=== PATIENT | female | born 1990 | race Caucasian/White ===

== ENCOUNTER 2020-07-06 05:11 | Emergency (ER) | payer SELFPAY ==
[2020-07-06] MEDS ORDERED: THIAMINE 200 MG/2 ML INJ ONE (06:32)
[2020-07-06] MEDS ORDERED: MULTIVITAMINS 10 ML VIAL (INJ) IV ONE (06:32)
[2020-07-06] MEDS ORDERED: FOLIC ACID 5 MG/ML VIAL ONE (06:33)
[2020-07-06] MEDS ORDERED: NA CHLORIDE 0.9% 1,000 ML ONE (06:34)
[2020-07-06 07:09] LABS: Absolute Lymphocytes (CBC) 1.9 K/uL (0.7-4.9); Basophils % 0.3 % (0-1.3); Hematocrit 39.7 % (36.0-45.0); MPV 7.8 fL (7.6-11.3); RBC Red Blood Cell Count 4.35 M/uL (3.86-4.86)
[2020-07-06 07:26] LABS: Protime INR 0.99
[2020-07-06 07:40] LABS: ALT/SGPT 36 U/L (12-78); AST/SGOT 23 U/L (15-37); Albumin 3.8 g/dL (3.4-5.0); Alkaline Phosphatase 81 U/L (45-117); BUN Blood Urea Nitrogen 13 mg/dL (7-18); Bicarbonate 25 mmol/L (21-32); Bilirubin Direct < 0.1 mg/dL (0-0.2); Bilirubin Total 0.3 mg/dL (0.2-1.0); Glucose Level 92 mg/dL (74-106); Potassium 4.1 mmol/L (3.5-5.1); Protein, Total 8.2 g/dL (6.4-8.2); Sodium Level 144 mmol/L (136-145)
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
[2020-07-06] MEDS ORDERED: ACETAMINOPHEN 325 MG TABLET ONE (17:00)
[2020-07-11 04:29] VITALS: TEMP 97.4
[2020-07-11 04:34] VITALS: O2SAT 99
[2020-07-11 04:36] VITALS: BP 96/56
== END 2020-07-06 19:16 | disposition home or self-care (01) ==
LOC: ER 05:11
DX: F10.929 Alcohol use, unspecified with intoxication, unspecified (principal)
CPT/HCPCS: 36415; 80048; 80076; 80320; 80329; 85025; 85610; 85730; 93005; 96365; 96366; 99284; J3411; J7030

== ENCOUNTER 2022-09-26 01:10 | Emergency (ER) | payer SELFPAY ==
--- OUTSIDE RECORDS SUMMARY | 2022-09-26 01:13 | XMS REPORT | Continuity of Care Document ---
:1990 Author Organization [facility] t Address [address] [place] [address] Care Team Providers Name Role Phone Pcp, Patient Does Not Have A Primary Care Physician +[id number] ADALGISA DICKINSON Attending Clinician Unavailable Adalgisa Dickinson DO Attending Clinician KRISTIN THOMSON Attending Clinician Unavailable Kristin Snowden Attending Clinician KRISTIN THOMSON Admitting Clinician Unavailable Problems Condition Condition Condition Status Onset Resolution Last Treating Co mments Source Name Details Category Date Date Treatment Clinician Date No known No known Disease Unive rs active active ity of problems problems [facility] Allergies, Adverse Reactions, Alerts Allergy Allergy Status Severity Reaction(s) Onset Inactive Treating Comm ents Source Name Type Date Date Clinician NO KNOWN Drug Active Univers ALLERGIE Class ity of S [facility] Social History Social Habit Start Date Stop Date Quantity Comments Source Exposure to 2022-05-22 2022-06-01 Not sure [facility] SARS-CoV-2 (event) 00:00:00 11:06:00 Medica l Branch Sex Assigned At [birth year] [facility] 00:00:00 00:00:00 Medical Branch Smoking Status Start Date Stop Date Source Tobacco smoking consumption [facility] Medical unknown Branch Medications Ordered Filled Start Stop Current Ordering Indication Dosage Frequency Signature Comments Components Source Medication Medication Date Date Medication? Clinician (SIG) Name Name amoxicillin 2021-08- No [id number] 875mg Take 1 Univers 875 mg 0-31 11-08 tablet by ity of tablet 00:00: 05:59 mouth in [place] 00 :00 the Medical morning Branch and 1 tablet in the evening. Do all this for 7 days. cephALEXin 2021- No [id number] 500mg Take 1 Univers (KEFLEX) 02-07 [id number] capsule by it y of 500 mg 00:00: 04:59 mouth 4 [place] capsule 00 :00 (four) Medical times Branch daily for 7 days. Immunizations Ordered Filled Immunization Date Status Comments [facility] Immunization Name Name Td 2022-02-07 Completed [facility] of 00:00:00 [facility] Branch Td 2022-02-07 Completed [facility] 00:00:00 [facility] Vital Signs Vital Name Observation Time Observation Value Comments Source Systolic blood 2022-06-01 16:07:00 153 mm[Hg] [facility] Diastolic blood 2022-06-01 16:07:00 99 mm[Hg] [facility] Heart rate 2022-06-01 16:07:00 100 /min [facility] Body temperature 2022-06-01 16:07:00 37.17 Cassie [facility] Respiratory rate 2022-06-01 16:07:00 20 /min [facility] Body height 2022-06-01 16:07:00 160 cm [facility] Body weight 2022-06-01 16:07:00 77.111 kg [facility] BMI 2022-06-01 16:07:00 30.11 kg/m2 [facility] Oxygen saturation in 2022-06-01 16:07:00 99 /min [facility] Arterial blood by [facility] Pulse oximetry Branch Systolic blood 2022-02-07 13:11:00 142 mm[Hg] [facility] Diastolic blood 2022-02-07 13:11:00 105 mm[Hg] [facility] Heart rate 2022-02-07 13:11:00 88 /min [facility] Body temperature 2022-02-07 13:11:00 36.89 Cassie [facility] Res[facility] rate 2022-02-07 13:11:00 16 /min [facility] Body height 2022-02-07 13:11:00 160 cm [facility] Body weight 2022-02-07 13:11:00 81.647 kg [facility] BMI 2022-02-07 13:11:00 31.89 kg/m2 [facility] Oxygen saturation in 2022-02-07 13:11:00 97 /min University Arterial blood by [facility] Pulse oximetry Branch Procedures Procedure Date / Time Performed Performing Clinician Sour e CONSENT/REFUSAL FOR 2022-06-01 16:03:10 Doctor Unassigned, No Un [facility] DIAGNOSIS AND Name [facility] TREATMENT XR FOOT <3 VW RIGHT 2022-02-07 13:47:00 Kristin Thomson [facility] NOTICE OF PRIVACY 2022-02-07 12:53:26 Doctor Unassigned, No [facility] PRACTICES Name [facility] Encounters Start End Encounter Admission Attending Care Care Encounter Source Date/Time Date/Time Type Type Clinicians Facility Department ID 2022-06-01 2022-06-01 Emergency [facility] [id number] Univers 11:09:00 11:39:00 ADALGISA murphy [facility] 2022-06-01 2022-06-01 [facility] [id number] Univers 11:09:00 11:39:00 Adalgisa DEE [id number] ity [facility] [id number] [facility] [id number] [place] [id number] Branch 2022-02-07 2022-02-07 Emergency X [facility] ERT [id number] Univers 08:14:00 10:26:00 KRISTIN murphy [facility] 2022-02-07 2022-02-07 [facility] [id number] Univers 08:14:00 10:26:00 Kristin DEE [id number] i ty of [facility] [id number] [facility] [id number] [place] [id number] Branch Results This patient has no known results.
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
[2022-09-26 01:56] VITALS: BP 126/81; TEMP 98.6; O2SAT 98
== END 2022-09-26 01:50 | disposition home or self-care (01) ==
LOC: ER 01:10
DX: Z04.71 Encounter for examination and observation following alleged adult physical abuse (principal); S01.81XA Laceration without foreign body of other part of head, initial encounter
CPT/HCPCS: 99283

== ENCOUNTER 2022-09-26 12:37 | Emergency (ER) | payer SELFPAY ==
--- OUTSIDE RECORDS SUMMARY | 2022-09-26 12:45 | XMS REPORT | Continuity of Care Document ---
:1990 Author Organization [facility] t Address [address] [place] [address] Care Team Providers Name Role Phone Pcp, [...] rs active active ity of problems problems [facility] Allergies, Adverse Reactions, Alerts Allergy Allergy Status Severity Reaction(s) Onset Inactive Treating Comm ents Source Name Type Date Date Clinician NO KNOWN Drug Active Univers ALLERGIE Class ity of S [facility] Social History Social Habit Start Date Stop Date Quantity Comments Source Exposure to 2022-05-22 2022-06-01 Not sure [facility] SARS-CoV-2 (event) 00:00:00 11:06:00 Medica l Branch Sex Assigned At [birth year] [facility] [place] [facility] Medical Branch Smoking Status Start Date Stop Date Source Tobacco smoking consumption [facility] Medications Ordered Filled Start Stop Current Ordering Indication Dosage Frequency Signature Comments Components Source Medication Medication Date Date Medication? Clinician (SIG) Name Name amoxicillin 2021-08- No [id number] 875mg Take 1 Univers 875 mg 06-09 tablet by ity of tablet 00:00: 05:59 mouth in [place] 00 :00 the Medical morning Branch and 1 tablet in the evening. Do all this for 7 days. cephALEXin 2021- No [id number] 500mg Take 1 Univers (KEFLEX) 02-07 [id number] capsule by it y of 500 mg 00:00: 04:59 mouth 4 [place] capsule 00 :00 (four) Medical times Branch daily for 7 days. Immunizations Ordered Filled Immunization Date Status Comments [facility] e Immunization Name Name Td 2022-02-07 Completed University 00:00:00 [facility] Branch Td 2022-02-07 Completed [facility] 00:00:00 [facility] Vital Signs Vital Name Observation Time Observation Value Comments Source Systolic blood 2022-06-01 16:07:00 153 mm[Hg] Univer sity of [facility] Diastolic blood 2022-06-01 16:07:00 99 mm[Hg] Unive rsity of [facility] Heart rate 2022-06-01 16:07:00 100 /min [facility] Body temperature 2022-06-01 16:07:00 37.17 Cassie [facility] Respiratory rate 2022-06-01 16:07:00 20 /min [facility] Body height 2022-06-01 16:07:00 160 cm [facility] Body weight 2022-06-01 16:07:00 77.111 kg [facility] BMI 2022-06-01 16:07:00 30.11 kg/m2 [facility] Oxygen saturation in 2022-06-01 16:07:00 99 /min [facility] Arterial blood by [facility] Pulse oximetry Branch Systolic blood 2022-02-07 13:11:00 142 mm[Hg] Univer sity of pressure [facility] Diastolic blood 2022-02-07 13:11:00 105 mm[Hg] Unive rsity of [facility] Heart rate 2022-02-07 13:11:00 88 /min [facility] Body temperature 2022-02-07 13:11:[address] [facility] Respiratory rate 2022-02-07 13:11:00 16 /min [facility] Body height 2022-02-07 13:11:00 160 cm Universi ty [facility] Body weight 2022-02-07 13:11:00 81.647 kg Universi ty [facility] BMI 2022-02-07 13:11:00 31.89 kg/m2 [facility] Oxygen saturation in 2022-02-07 13:11:00 97 /min University of Arterial blood by [facility] Pulse oximetry Branch Procedures Procedure Date / Time Performed Performing Clinician Sour e CONSENT/REFUSAL FOR 2022-06-01 16:03:10 [facility] TREATMENT XR FOOT <3 VW RIGHT 2022-02-07 13:47:00 [facility] 2022-02-07 12:53:26 Doctor Unassigned, No [facility]ACTICES Name [facility] Encounters Start End Encounter Admission Attending Care Care Encounter Source Date/Time Date/Time Type Type Clinicians Facility Department ID 2022-06-01 2022-06-[address] [facility] ERT [id number] Univers 11:09:00 11:39:00 ADALGISA murphy [facility] 2022-06-01 2022-06-[address] [facility] [id number] Univers 11:09:00 11:39:00 Adalgisa DEE [id number] ity [facility] [id number] [facility] [id number] [place] [id number] Branch 2022-02-07 2022-02-07 Emergency X ALIX NVGÉNESIS ERT [id number] Univers 08:14:00 10:26:00 KRISTIN murphy [facility] 2022-02-07 2022-02-[address] [facility] [id number] Univers 08:14:00 10:26:00 Kristin DEE [id number] i ty [facility] [id number] [facility] [id number] [place] [id number] Branch Results This patient has no known results.
[2022-09-26] MEDS ORDERED: TDAP (DIPHTH,PERTUSS(ACELL),TET VAC) 0.5 ML VIAL IMVAC ONE (13:56)
--- NOTE | 2022-09-26 13:56 | RAD REPORT ---
EXAM DESCRIPTION: RAD - Hand Right 3 View - 09/26/2022 1:30 pm CLINICAL HISTORY: Pain COMPARISON: Hand Left 3 View dated 01/27/2016 FINDINGS/IMPRESSION: Deformity at the fifth distal metacarpal likely a remote healed fifth metacarpa l fracture. Soft tissue swelling is present. Possible acute nondisplaced mid diaphyseal fracture.
--- NOTE | 2022-09-26 14:13 | ER ---
Nurse's Notes [facility] Name: Eunice Gage Age: 32 yrs Sex: Female : 1990 Arrival Date: 09/26/2022 Time: 12:38 Bed 19 Private MD: Diagnosis: Nondisplaced fracture of shaft of fifth metacarpal bone, right hand;Facial Laceration/ Laceration without foreign body of cheek and temporomandibular area Presentation: 09/26 13:01 Chief complaint: Right hand pain and swelling since last night, cause unknown, pt hb stated "I don't want to talk about it." Laceration noted to right side of face, bleeding controlled. Coronavirus screen: At this time, the client does not indicate any symptoms associated with coronavirus-19. Ebola Screen: No symptoms or risks identified at this time. Initial Sepsis Screen: Does the patient meet any 2 criteria? No. Patient's initial sepsis screen is negative. Does the patient have a suspected source of infection? No. Patient's initial sepsis screen is negative. Risk Assessment: Do you want to hurt yourself or someone else? Patient reports no desire to harm self or others. Onset of symptoms was September 25, 2022. 13:01 Method Of Arrival: Ambulatory hb 13:01 Acuity: CALLY 4 hb Triage Assessment: 13:45 General: Appears in no apparent distress. uncomfortable. Injury Description: Laceration eh3 was sustained 12-24 hours ago. no active bleeding noted at this time. 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 - Social history:: Smoking status: unknown. Screenin:45 [facility] ED Fall Risk Assessment (Adult) History of falling in the last 3 months, eh3 including since admission No falls in past 3 months (0 pts) Confusion or Disorientation No (0 pts) Intoxicated or Sedated No (0 pts) Impaired Gait No (0 pts) Mobility Assist Device Used No (0 pt) Altered Elimination No (0 pt) Score/Fall Risk Level 0 - 2 = Low Risk. Abuse screen: Denies threats or abuse. Denies injuries from another. Nutritional screening: No deficits noted. Tuberculosis screening: No symptoms or risk factors identified. Assessment: 13:45 General: Appears in no apparent distress. uncomfortable, Behavior is calm, cooperative, eh3 appropriate for age. Pain: Complains of pain in right hand Pain does not radiate. Neuro: Level of Consciousness is awake, alert, obeys commands, Oriented to person, place, time, situation. Cardiovascular: Capillary refill < 3 seconds Patient's skin is warm and dry. Respiratory: Airway is patent Respiratory effort is even, unlabored, Respiratory pattern is regular, symmetrical. GI: No signs and/or symptoms were reported involving the gastrointestinal system. Abdomen is round non-distended. : No signs and/or symptoms were reported regarding the genitourinary system. EENT: No signs and/or symptoms were reported regarding the EENT system. Derm: Skin is pink, warm \\T\\ dry. Wound noted right cheek Wound is 3cm laceration, no bleeding noted. Musculoskeletal: Circulation, motion, and sensation intact. Range of motion: intact in all extremities, Swelling present in dorsal aspect of proximal phalanx of right little finger and dorsum of right hand. 14:45 Reassessment: Patient appears in no apparent distress at this time. Patient and/or eh3 family updated on plan of care and expected duration. Pain level reassessed. Patient is alert, oriented x 3, equal unlabored respirations, skin warm/dry/pink. Vital Signs: 13:01 BP 136 / 88; Pulse 99; Resp 16; Temp 98.5; Pulse Ox 100% on R/A; Weight 90.72 kg; hb Height 5 ft. 3 in. (160.02 cm); Pain 9/10; 13:45 BP 144 / 82; Pulse 90; Resp 16; Pulse Ox 100% on R/A; eh3 14:45 BP 147 / 67; Pulse 102; Resp 18; Pulse Ox 100% on R/A; eh3 13:01 Body Mass Index 35.43 (90.72 kg, 160.02 cm) hb ED Course: 12:38 Patient arrived in ED. rg4 12:49 Shilpa Hilario FNP-C is [facility]. kb 12:49 Johnny Aguiar MD is Attending Physician. kb 13:03 Triage completed. hb 13:04 Arm band placed on. hb 13:34 Hand Right 3 View XRAY In Process Unspecified. EDMS 13:45 Patient has correct armband on for positive identification. Bed in low position. Call eh3 light in reach. Side rails up X2. Pulse ox on. NIBP on. Door closed. Noise minimized. Lights dimmed. Warm blanket given. 13:49 Rosamaria Ceja, RN is Primary Nurse. eh3 14:15 Wound care: to laceration located on right cheek was irrigated with normal saline, eh3 dressed with Neosporin, band aid, Patient tolerated well. 14:25 No provider procedures requiring assistance completed. Patient did not have IV access eh3 during this emergency room visit. 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 Exp: eh3 02/13/2023. Lot #: [id number]. } Route: IM; Site: right deltoid; 14:55 Follow up: Response: (VIS) Vaccine information sheet provided today. Questions and/or eh3 concerns addressed. VIS edition date: Mar 07, 2021.; No adverse reaction Medication: 13:58 Vaccine Information Statement (VIS) provided today. Questions and/or concerns eh3 addressed. VIS edition date: March 07, 2021. Outcome: 14:13 Discharge ordered by . kb 14:57 Discharged to home ambulatory. eh3 14:57 Condition: stable 14:57 Discharge instructions given to patient, Instructed on discharge instructions, follow up and referral plans. Demonstrated understanding of instructions, follow-up care. 14:57 Patient left the ED. eh3 Signatures: Dispatcher [employer] EDUT Shilpa Hilario, MANAGER OF HOSPITAL-C MANAGER OF HOSPITAL-CkCheyanne Woodruff RN RN hb Garcia, Rubi rg4 Rosamaria Ceja, VALERIY RN eh3 Corrections: (The following items were deleted from the chart) 14:04 14:03 Vaccine Information Statement (VIS) provided today. Questions and/or concerns eh3 addressed. VIS edition date: March 07, 2021 eh3 14:56 14:15 Wound care: to laceration located on right cheek was irrigated with normal eh3 saline, dressed with Neosporin, band aid, eh3
--- NOTE | 2022-09-26 14:13 | EDPHYS ---
Physician Documentation [facility] Name: Eunice Gage Age: 32 yrs Sex: Female : 1990 Arrival Date: 09/26/2022 Time: 12:38 Bed 19 Private MD: ED Physician Johnny Aguiar HPI: 09/26 15:06 This 32 yrs old Female presents to ER via Ambulatory with complaints of Hand Injury. kb 15:06 The patient or guardian reports injury, pain, swelling. The complaints affect the kb dorsum of right hand. Context: The problem was sustained at home, resulted from an unknown cause. Onset: The symptoms/episode began/occurred last night. Modifying factors: The symptoms are alleviated by nothing, the symptoms are aggravated by movement. Associated signs and symptoms: The patient has no apparent associated signs or symptoms. Severity of symptoms: At their worst the symptoms were moderate, in the emergency department the symptoms are unchanged. The patient has not experienced similar symptoms in the past. The patient has not recently seen a physician. 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 - Social history:: Smoking status: unknown. ROS: 14:59 Constitutional: Negative for fever, chills, and weight loss. kb 14:59 MS/extremity: Positive for pain, swelling, tenderness, of the dorsum of right hand. 14:59 Skin: Positive for laceration(s), of the right cheek. 14:59 All other systems are negative. Exam: 14:59 Constitutional: This is a well developed, well nourished patient who is awake, alert, kb and in no acute distress. Head/Face: Normocephalic, atraumatic. ENT: Moist Mucous membranes Cardiovascular: Regular rate and rhythm with a normal S1 and S2. No gallops, murmurs, or rubs. No pulse deficits. Respiratory: Respirations even and unlabored. No increased work of breathing. Talking in full sentences Abdomen/GI: Soft, non-tender. No distention Neuro: Awake and alert, GCS 15, oriented to person, place, time, and situation. Moves all extremities. Normal gait. Psych: Awake, alert, with orientation to person, place and time. Behavior, mood, and affect are within normal limits. 14:59 Musculoskeletal/extremity: Extremities: grossly normal except: noted in the dorsal aspect of proximal phalanx of right little finger: 14:59 Skin: injury, laceration(s), the wound is approximately 3 cm(s), of the dorsum of right hand, that can be described as clean, no foreign body, linear, without bleeding. Vital Signs: 13:01 BP 136 / 88; Pulse 99; Resp 16; Temp 98.5; Pulse Ox 100% on R/A; Weight 90.72 kg; hb Height 5 ft. 3 in. (160.02 cm); Pain 9/10; 13:45 BP 144 / 82; Pulse 90; Resp 16; Pulse Ox 100% on R/A; eh3 14:45 BP 147 / 67; Pulse 102; Resp 18; Pulse Ox 100% on R/A; eh3 13:01 Body Mass Index 35.43 (90.72 kg, 160.02 cm) hb MDM: 12:49 Patient medically screened. kb 14:47 Differential diagnosis: dislocation, closed fracture, contusion. Data reviewed: vital kb signs, nurses notes. Independent interpretation of the following test(s) in the Emergency Department X-Ray: My interpretation is x-ray of hand read by me reveals nondisplaced fracture of fifth metacarpal.. Counseling: I had a detailed discussion with the patient and/or guardian regarding: the historical points, exam findings, and any diagnostic results supporting the discharge/admit diagnosis, radiology results, the need for outpatient follow up, a orthopedic surgeon, to return to the emergency department if symptoms worsen or persist or if there are any questions or concerns that arise at home. ED course: Patient is a 32-year-old female who presents for right hand pain and swelling as well as laceration to right cheek. States her cheek was cut by glass last night and she is not positive what happened to her hand. On exam patient has swelling to dorsum of right hand, full range of motion. 3 cm laceration that is well approximated noted to right cheek. X-ray reveals nondisplaced fracture of fifth metacarpal as well as old fracture. Patient educated on these findings and splint applied. Patient educated to follow-up with Ortho verbal understanding received.. . 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 Exp: eh3 02/13/2023. Lot #: [id number]. } Route: IM; Site: right deltoid; 14:55 Follow up: Response: (VIS) Vaccine information sheet provided today. Questions and/or 3 concerns addressed. VIS edition date: Mar 07, 2021.; No adverse reaction Disposition Summary: 09/26/22 14:13 Discharge Ordered Location: Home kb Condition: Stable kb Diagnosis - Nondisplaced fracture of shaft of fifth metacarpal bone, right hand kb - Facial Laceration/ Laceration without foreign body of cheek and temporomandibular kb area Followup: kb - With: Emergency Department - When: As needed - Reason: Worsening of condition Followup: kb - With: Private Physician - When: 2 - 3 days - Reason: Recheck today's complaints, Continuance of care, Re-evaluation by your physician Discharge Instructions: - Discharge Summary Sheet kb - Metacarpal Fracture, Olev-ed-[id number] kb - Facial Laceration, Fczi-fk-Hcso kb Forms: - Medication Reconciliation Form kb - Thank You Letter kb - Antibiotic Education kb - Prescription Opioid Use kb - Work release form eb Signatures: Dispatcher [employer] EDShilpa New, ALIYA-Lupillo PISANO-Cheyanne Barroso RN RN Rosamaria Ceja RN RN eh3 Corrections: (The following items were deleted from the chart) 15:07 14:59 Skin: injury, laceration(s), the wound is approximately 3 cm(s), of the right kb cheek, that can be described as clean, no foreign body, linear, without bleeding, kb
[2022-09-26 15:30] VITALS: TEMP 98.5; O2SAT 100
[2022-09-26 15:46] VITALS: BP 147/67
== END 2022-09-26 14:57 | disposition home or self-care (01) ==
LOC: ER 12:37
PROC: 2W3EX1Z Immobilization of Right Hand using Splint (ICD-10-PCS; principal; 2022-09-26)
DX: S62.356A Nondisplaced fracture of shaft of fifth metacarpal bone, right hand, initial encounter for closed fracture (principal); S01.411A Laceration without foreign body of right cheek and temporomandibular area, initial encounter; Z23 Encounter for immunization
CPT/HCPCS: 90471; 99284

== ENCOUNTER 2023-05-24 16:40 | Emergency (ER) | payer SELFPAY ==
[2012-04-01 19:11] VITALS: BP 140/68
--- OUTSIDE RECORDS SUMMARY | 2023-05-24 16:43 | XMS REPORT | Continuity of Care Document ---
:1990 Author Organization [facility] t Address [address] [place] [address] Care Team Providers Name Role Phone Pcp, Patient Does Not Have A Primary Care Physician [id number] ARLINE LOCKWOOD Attending Clinician Unavailable Arline Gómez Attending Clinician JAYLIN THOMSON Attending Clinician Unavailable Jaylin Snowden Attending Clinician ROSEY MELGAR Attending Clinician Unavailable Janneth Ortiz Attending Clinician JANNETH CUNNINGHAM Attending Clinician Unavailable Doctor Unassigned, [place] Attending Clinician Unavailable ALEN ROBERT Attending Clinician Unavailable Alen Robert MD Attending Clinician AVERY ABURTO Attending Clinician Unavailable ADALGISA DICKINSON Attending Clinician Unavailable Adalgisa Dickinson DO Attending Clinician JAYLIN THOMSON Admitting Clinician Unavailable Payers Payer Name Policy Type Policy Number Effective Date Expiration Date [facility] [id number] [id number] CARE HOME 00:00:00 Problems Condition Condition Condition Status Onset Resolution Last Treating Co mments Source Name Details Category Date Date Treatment Clinician Date No known No known Disease Unive rs active active ity of problems problems [facility] Allergies, Adverse Reactions, Alerts Allergy Allergy Status Severity Reaction(s) Onset Inactive Treating Comm ents Source Name Type Date Date Clinician NO KNOWN Drug Active Univers ALLERGIE Class ity of S [facility] Social History Social Habit Start Date Stop Date Quantity Comments Source Gender identity [facility] [place] [facility] [place] Sexual orientation Univer sity of [facility] Alcohol intake 2023-03-30 2023-03-30 Lifetime University of 00:00:00 00:00:00 non-drinker [facility] (finding) Branch Exposure to 2022-10-19 2022-10-29 Not sure [facility]-CoV-2 (event) 00:00:00 10:11:00 [facility] History of Social 2022-10-02 2022-10-02 Univers ity of function 00:00:00 00:00:00 [facility] Tobacco use and 2022-10-02 2022-10-02 Smokeless Universit y of exposure 00:00:00 00:00:00 tobacco non-user [facility] dical [place] Sex Assigned [birth year] Universit y of 00:00:00 00:00:00 [facility] Smoking Status Start Date Stop Date Source Tobacco smoking consumption [facility] [place] Never smoked tobacco [facility] Medications Ordered Filled Start Stop Current Ordering Indication Dosage Frequency Signature Comments Components Source Medication Medication Date Date Medication? Clinician (SIG) Name Name rabies 2022- No 20U/kg 2,085 Univers immune 816 08-16 Units ity of globulin 03:36: 04:13 (rounded [place] (PF[place] 00 :00 from 2,086 Medical (HYPERRAB Units = 20 Bran ch (PF)) Units/kg injection ?104.3 2,085 Units kg), Intramuscu lar, ONCE, 1 dose, On Wed03/16/23 at 2245, DEBBY amoxicillin 2022- Yes [id number] 1{tbl} Take 1 Univers -clavulanat 03-16-26 tablet by it y of e 875-125 00:00: 04:59 mouth in [place] mg per 00 :00 the Medical tablet morning Branch and 1 tablet in the evening. Do all this for 10 days. amoxicillin 2022- Yes [id number] 1{tbl} Take 1 Univers -clavulanat 03-16-26 tablet by it y of e 875-125 00:00: 04:59 mouth in [place] mg per 00 :00 the Medical tablet morning Branch and 1 tablet in the evening. Do all this for 10 days. amoxicillin 2022- Yes [id number] 1{tbl} Take 1 Univers -clavulanat 03-16 tablet by it y of e 875-125 00:00: 04:59 mouth in [place] mg per 00 :00 the Medical tablet morning Branch and 1 tablet in the evening. Do all this for 10 days. amoxicillin 2021-08- No [id number] 875mg Take 1 Univers 875 mg 0--08 tablet by ity of tablet 00:00: 05:59 mouth in [place] 00 :00 the Medical morning Branch and 1 tablet in the evening. Do all this for 7 days. cephALEXin 2021- No [id number] 500mg Take 1 Univers (KEFLEX) 02-07 [id number] capsule by it y of 500 mg 00:00: 04:59 mouth 4 [place] capsule 00 :00 (four) Medical times Branch daily for 7 days. Vital Signs Vital Name Observation Time Observation Value Comments Source Body temperature 2023-03-30 22:30:00 37.22 Cassie [facility] Respiratory rate 2023-03-30 22:30:00 20 /min [facility] Body weight 2023-03-30 22:30:00 104.327 kg [facility] BMI 2023-03-30 22:30:00 40.74 kg/m2 [facility] Oxygen saturation in 2023-03-30 22:30:00 98 /min [facility] Arterial blood by [facility] Pulse oximetry Branch Systolic blood 2023-03-30 22:30:00 127 mm[Hg] [facility] 2023-03-30 22:30:00 77 mm[Hg] [facility] Heart rate 2023-03-30 22:30:00 100 /min [facility] Systolic blood 2023-03-23 21:49:00 141 mm[Hg] Univer sity [facility] Diastolic blood 2023-03-23 21:49:00 98 mm[Hg] Unive rsity of [facility] Heart rate 2023-03-23 21:49:00 97 /min [facility] [place] [facility] Body temperature 2023-03-23 21:49:00 37.11 Cassie [facility] [place] [facility] Respiratory rate 2023-03-23 21:49:00 20 /min Univ [facility] [place] [facility] Body weight 2023-03-23 21:49:00 104.327 kg [facility] [place] [facility] BMI 2023-03-23 21:49:00 40.74 kg/m2 [facility] [place] [facility] Oxygen saturation in 2023-03-23 21:49:00 99 /min University of Arterial blood by [facility]in Pulse oximetry Branch Body temperature 2023-03-19 21:45:00 36.89 Cassie [facility] [place] [facility] Systolic blood 2023-03-19 21:44:00 132 mm[Hg] Univer [facility]ity [facility] [place] [facility] Diastolic blood 2023-03-19 21:44:00 87 mm[Hg] Unive rsity of [facility] [place] [facility] Heart rate 2023-03-19 21:44:00 98 /min [facility] [place] [facility] Respiratory rate 2023-03-19 21:44:00 16 /min Univ [facility] [place] [facility] Body height 2023-03-19 21:44:00 160 cm [facility] [place] [facility] Body weight 2023-03-19 21:44:00 104.327 kg [facility] [place] [facility] BMI 2023-03-19 21:44:00 40.74 kg/m2 [facility] [place] [facility] Oxygen saturation in 2023-03-19 21:44:00 99 /min University of Arterial blood by [facility]in Pulse oximetry Branch Systolic blood 2023-03-17 05:00:00 131 mm[Hg] Univer [facility]ity [facility] [place] [facility] Diastolic blood 2023-03-17 05:00:00 56 mm[Hg] Unive rsity of [facility] [place] [facility] Heart rate 2023-03-17 05:00:00 84 /min [facility] [place] [facility] Body temperature 2023-03-17 05:00:00 37.5 Cassie Univ [facility] [place] [facility] Respiratory rate 2023-03-17 05:00:00 16 /min Univ [facility] [place] [facility] Oxygen saturation in 2023-03-17 05:00:00 98 /min University of Arterial blood by [facility] lenin Pulse oximetry Branch Body height 2023-03-17 02:05:00 160 cm [facility] [place] [facility] Body weight 2023-03-17 02:05:00 104.327 kg [facility] [place] [facility] BMI 2023-03-17 02:05:00 40.74 kg/m2 [facility] [place] [facility] Systolic blood 2022-10-29 15:23:00 122 mm[Hg] Univer [facility]ity [facility] [place] [facility] Diastolic blood 2022-10-29 15:23:00 85 mm[Hg] Unive rsity of pressure [facility] Heart rate 2022-10-29 15:23:00 93 /min [facility] [place] [facility] [place] Body height 2022-10-29 15:23:00 160 cm [facility] [place] [facility] Body weight 2022-10-29 15:23:00 104.327 kg [facility] [place] [facility] [place] BMI 2022-10-29 15:23:00 40.74 kg/m2 [facility] [place] [facility] [place] Oxygen saturation in 2022-10-29 15:23:00 98 /min University of Arterial blood by [facility] Pulse oximetry Branch Body height 2022-10-02 14:39:00 160 cm [facility] [place] [facility] [place] Body weight 2022-10-02 14:39:00 104.327 kg [facility] [place] [facility] BMI 2022-10-02 14:39:00 40.74 kg/m2 Universi ty of [facility] Branch Systolic blood 2022-06-01 16:07:00 153 mm[Hg] Univer sity of [facility] Diastolic blood 2022-06-01 16:07:00 99 mm[Hg] Unive rsity of pressure [facility] Heart rate 2022-06-01 16:07:00 100 /min [facility] [place] [facility] Body temperature 2022-06-01 16:07:00 37.17 Cassie Univ ersity of [facility] Respiratory rate 2022-06-01 16:07:00 20 /min Univ ersity of [facility] Body height 2022-06-01 16:07:00 160 cm [facility] [place] [facility] [place] Body weight 2022-06-01 16:07:00 77.111 kg [facility] [place] [facility] BMI 2022-06-01 16:07:00 30.11 kg/m2 [facility] [place] [facility] Oxygen saturation in 2022-06-01 16:07:00 99 /min University of Arterial blood by [facility] Pulse oximetry Branch Systolic blood 2022-02-07 13:11:00 142 mm[Hg] Univer [facility]ity [facility] [place] [facility] Diastolic blood 2022-02-07 13:11:00 105 mm[Hg] Unive rsity of [facility] [place] [facility] Heart rate 2022-02-07 13:11:00 88 /min [facility] [place] [facility] Body temperature 2022-02-07 13:11:00 36.89 Cassie [facility] [place] [facility] Respiratory rate 2022-02-07 13:11:00 16 /min [facility] [place] [facility] Body height 2022-02-07 13:11:00 160 cm [facility] [place] [facility] Body weight 2022-02-07 13:11:00 81.647 kg [facility] [place] [facility] BMI 2022-02-07 13:11:00 31.89 kg/m2 [facility] [place] [facility] Oxygen saturation in 2022-02-07 13:11:00 97 /min University of Arterial blood by [facility] Pulse oximetry Branch Procedures Procedure Date / Time Performed Performing Clinician [facility] e CONSENT/REFUSAL FOR 2023-03-30 22:25:52 Doctor Unassigned, No [facility] [place] [facility] AND Name Medical Branch TREATMENT ASSIGNMENT OF BENEFITS 2023-03-23 21:51:35 Doctor Unassigned, No [facility] Name Medical Branch CONSENT/REFUSAL FOR 2023-03-23 21:46:46 Doctor Unassigned, No [facility] [place] DI[facility] AND Name Medical Branch TREATMENT CONSENT/REFUSAL FOR 2023-03-19 21:40:42 Doctor Unassigned, No [facility] [place] DI[facility]NOSIS AND Name Medical Branch TREATMENT POCT TEST 2023-03-17 04:06:00 Janneth Cunningham [facility] [place] [facility] CONSENT/REFUSAL FOR 2023-03-17 02:01:46 Doctor Unassigned, No [facility] [place] DIAGNOSIS AND Name Medical Branch TREATMENT EXTERNAL PROVIDER 2022-11-04 05:01:00 Doctor Unassigned, No [facility] [place] RECORDS Name Medical Branch ASSIGNMENT OF BENEFITS 2022-10-29 15:13:46 Doctor Unassigned, No [facility] Name Medical Branch CONSENT/REFUSAL FOR 2022-06-01 16:03:10 Doctor Unassigned, No [facility] DIAGNOSIS AND Name Medical Branch TREATMENT XR FOOT <3 VW RIGHT 2022-02-07 13:47:00 Jaylin Thomson [facility] NOTICE OF PRIVACY 2022-02-07 12:53:26 Doctor Unassigned, No [facility] PRACTICES Name Medical [place] Encounters Start End Encounter Admission Attending Care Care Encounter Source Date/Time Date/Time Type Type Clinicians Facility Department ID 2023-03-30 2023-03-30 Emergency [facility] [id number] Univers 17:31:00 18:19:00 ARLINE [facility] 2023-03-30 2023-03-30 Emergency Fabián [facility] [id number] Univers 17:31:00 18:19:00 Arline DEE [id number] i ty of [place] [id number] [facility] [id number] [place] [id number] [place] 2023-03-23 2023-03-23 Emergency X ALIX, [facility] ERT [id number] Univers 16:49:00 18:07:00 JAYLIN [facility] 2023-03-23 2023-03-23 Emergency Thomson, [facility] [id number] Univers 16:49:00 18:07:00 Jaylin DEE [id number] i ty of [place] [id number] [facility] [id number] [facility] 084 [place] 2023-03-19 2023-03-19 Emergency X TALIA, [facility] ERT [id number] Univers 16:46:00 17:51:00 ROSEY [facility] 2023-03-19 2023-03-19 Emergency Talia, [facility] [id number] Univers 16:46:00 17:51:00 Rosey DEE [id number] ity [facility] [id number] [facility] [id number] [address] 2023-03-16 2023-03-17 Emergency [facility] [id number] Univers 21:28:00 00:35:00 Shinta [place] [id number] i ty of [place] [id number] [facility] [id number] [address] 2023-03-16 2023-03-17 Emergency X [facility] ERT [id number] Univers 21:28:00 00:35:00 SHINTA [facility] 2022-11-04 2022-11-04 Orders Doctor LISET [id number] Univers 00:00:00 00:00:00 Only Unassigned, HODA [id number] ity of [place] [facility] 4.2.7.2.686 Gee as [id number] [address] 2022-10-29 2022-10-29 [facility] [id number] Univers 11:00:00 11:02:[address] [facility] 2022-10-29 2022-10-29 Office [facility] [id number] Univers 11:00:00 11:02:03 Visit [facility] [id number] it y of [place] 4.2.7.2.686 Gee as TIMOTHY?BLEA [id number] [address] MEDICAL OFFICE [facility] 2022-10-29 2022-10-29 Orders Doctor HUTCHINS [id number] Univers 00:00:00 00:00:00 Only Unassigned, HODA [id number] ity of [place] [facility] [id number] Gee as [id number] [address] 2022-10-02 2022-10-02 [facility] [id number] Univers 08:45:00 11:19:[address] [facility] 2022-10-02 2022-10-02 Office [facility] [id number] Univers 08:45:00 11:19:37 Visit [facility] [id number] it y [facility] [id number] Gee as TIMOTHY?BLEA [id number] Wi kathi [address] MEDICAL OFFICE BUILDING 2022-06-01 2022-06-01 Emergency X [facility] ERT [id number] Univers 11:09:00 11:39:00 ADALGISA eugenegodwin [facility] 2022-06-01 2022-06-01 Emergency [facility] [id number] Univers 11:09:00 11:39:00 Adalgisa Brianne [facility] [id number] ity [facility] [id number] [facility] [id number] [address] 2022-02-07 2022-02-07 Emergency X THOMSON, [facility] ERT [id number] Univers 08:14:00 10:26:00 JAYLIN eugenegodwin [facility] 2022-02-07 2022-02-07 Emergency [facility] [id number] Univers 08:14:00 10:26:00 Jaylin DEE [id number] i ty [facility] [id number] [facility] [id number] [address] Results Test Description Test Time Test Comments Results Result Comments Source POCT TEST 2023-03-17 04:06:00 Test Item Value Reference Range Interpretation Comme nts POCT PREG (test code = 1605) Negative On board controls acceptable with C Line (test code = 3574) Yes Lab Interpretation (test code = 19577-2) Normal [facility]
--- NOTE | 2023-05-24 17:44 | RAD REPORT ---
EXAM DESCRIPTION: RAD - Hand Right 3 View - 05/24/2023 5:17 pm CLINICAL HISTORY: Right hand pain status post injury FINDINGS: Old fracture fifth metacarpal No acute fracture or dislocation seen
--- NOTE | 2023-05-24 17:54 | EDPHYS ---
Physician Documentation [facility] Name: Eunice Gage Age: 32 yrs Sex: Female : 1990 Arrival Date: 05/24/2023 Time: 16:40 Bed DIS1 Private MD: ED Physician Jonn Lewis HPI: 05/24 16:50 This 32 yrs old Female presents to ER via Unassigned with complaints of Hand Pain. kb 16:50 The patient or guardian reports deformity, injury, pain. kb 18:22 Pt is a 32 year old female that reports fall yesterday and landing on right hand. kb States she has fractured right hand a few times in the past and believes she fractured it again during fall. c/o right hand pain. States she came in to get a note to return to work tomorrow. Historical: - Allergies: 16:51 No Known Allergies; cm10 - Home Meds: 16:51 None [Active]; cm10 - PMHx: 16:51 None; cm10 - PSHx: 16:51 None; cm10 - Immunization history:: Adult Immunizations unknown. - Social history:: Smoking status: Patient denies any tobacco usage or history of. ROS: 18:21 Constitutional: Negative for fever, chills, and weight loss, kb 18:21 MS/extremity: Positive for deformity, pain, of the dorsum of right hand, 18:21 All other systems are negative, Exam: 18:21 Constitutional: This is a well developed, well nourished patient who is awake, alert, kb and in no acute distress. Head/Face: Normocephalic, atraumatic. ENT: Moist Mucous membranes Cardiovascular: Regular rate Respiratory: Respirations even and unlabored. No increased work of breathing. Talking in full sentences Skin: Warm, dry with normal turgor. Normal color. Neuro: Awake and alert, GCS 15, oriented to person, place, time, and situation. Moves all extremities. Normal gait. 18:21 Musculoskeletal/extremity: Extremities: grossly normal except: noted in the dorsum of right hand: decreased ROM, deformity, pain, tenderness, ROM: intact in all extremities, Circulation is intact in all extremities. Sensation intact. Vital Signs: 16:49 BP 140 / 85; Pulse 109; Resp 18; Temp 97.3(TE); Pulse Ox 100% on R/A; Weight 97.98 kg cm10 (R); Height 5 ft. 3 in. (R); Pain 9/10; 16:49 Body Mass Index 38.26 (97.98 kg, 160.02 cm) cm10 16:49 Pain Scale: Adult cm10 MDM: 16:43 Patient medically screened. kb 18:22 Differential diagnosis: dislocation, closed fracture, contusion. Data reviewed: vital kb signs, nurses notes. Independent interpretation of the following test(s) in the Emergency Department X-Ray: My interpretation is no acute fracture. Counseling: I had a detailed discussion with the patient and/or guardian regarding the historical points, exam findings, and any diagnostic results supporting the discharge/admit diagnosis, radiology results, the need for outpatient follow up, a orthopedic surgeon, to return to the emergency department if symptoms worsen or persist or if there are any questions or concerns that arise at home. 05/24 16:47 Order name: Hand Right 3 View XRAY; Complete Time: 17:52 kb Administered Medications: No medications were administered Disposition: 19:34 Co-signature as Attending Physician, Jonn Lewis MD I reviewed the patient's care rn provided by the Advanced Practice Provider and agree with the diagnosis and treatment plan. Disposition Summary: 05/24/23 17:54 Discharge Ordered Notes: Location: Home kb Condition: Stable kb Diagnosis - Old fracture fifth metacarpal right hand kb - Pain in right hand kb Followup: kb - With: Emergency Department - When: As needed - Reason: Worsening of condition Followup: kb - With: Private Physician - When: 2 - 3 days - Reason: Recheck today's complaints, Continuance of care, Re-evaluation by your physician Discharge Instructions: - Discharge Summary Sheet kb - Boxer's Fracture kb - Hand Contusion, [id number] kb Forms: - Work release form kb - Medication Reconciliation Form kb - Thank You Letter kb - Antibiotic Education kb - Prescription Opioid Use kb - Patient Portal Instructions kb - Leadership Thank You Letter kb Signatures: Dispatcher [employer] Shilpa Fitzgerald, T[employer] G[employer]OW IRRIGATOR-Jonn Hargrove MD MD rn Martinez, Clarissa, RN RN 10
--- NOTE | 2023-05-24 17:54 | ER ---
Nurse's Notes [facility] Name: Eunice Gage Age: 32 yrs Sex: Female : 1990 Arrival Date: 05/24/2023 Time: 16:40 Bed DIS1 Private MD: Diagnosis: Old fracture fifth metacarpal right hand;Pain in right hand Presentation: 05/24 16:49 Chief complaint: Patient states: right hand pain. Pt states that she fell and landed on cm10 her right hand last night. Pt has noted swelling to right hand. Coronavirus screen: Vaccine status: Patient reports being unvaccinated. Client denies travel out of the [place] in the last 14 days. Ebola Screen: Patient denies travel to an Ebola-affected area in the 21 days before illness onset. No symptoms or risks identified at this time. Initial Sepsis Screen: Does the patient meet any 2 criteria? No. Patient's initial sepsis screen is negative. Does the patient have a suspected source of infection? No. Patient's initial sepsis screen is negative. Risk Assessment: Do you want to hurt yourself or someone else? Patient reports no desire to harm self or others. Onset of symptoms was May 24, 2023. 16:49 Method Of Arrival: Ambulatory cm10 16:49 Acuity: CALLY 4 cm10 Triage Assessment: 19:24 General: Appears in no apparent distress. Behavior is calm, cooperative. Pain: Denies kl pain. Historical: - Allergies: 16:51 No Known Allergies; cm10 - Home Meds: 16:51 None [Active]; cm10 - PMHx: 16:51 None; cm10 - PSHx: 16:51 None; cm10 - Immunization history:: Adult Immunizations unknown. - Social history:: Smoking status: Patient denies any tobacco usage or history of. Screenin:23 [facility] ED Fall Risk Assessment (Adult) History of falling in the last 3 months, kl including since admission No falls in past 3 months (0 pts). Abuse screen: Denies threats or abuse. Nutritional screening: No deficits noted. Tuberculosis screening: No symptoms or risk factors identified. Assessment: 19:23 Reassessment: Patient appears in no apparent distress at this time. Patient denies pain kl at this time. Vital Signs: 16:49 BP 140 / 85; Pulse 109; Resp 18; Temp 97.3(TE); Pulse Ox 100% on R/A; Weight 97.98 kg cm10 (R); Height 5 ft. 3 in. (R); Pain 9/10; 16:49 Body Mass Index 38.26 (97.98 kg, 160.02 cm) cm10 16:49 Pain Scale: Adult cm10 ED Course: 16:42 Patient arrived in ED. mg5 16:42 Shilpa Hilario FNP-C [facility]. kb 16:43 Jonn Lewis MD is Attending Physician. kb 16:51 Triage completed. cm10 16:51 Arm band placed on Patient placed in waiting room. cm10 17:18 Hand Right 3 View XRAY In Process Unspecified. EDMS 19:23 No provider procedures requiring assistance completed. Patient did not have IV access kl during this emergency room visit. Administered Medications: No medications were administered Medication: 19:23 VIS not applicable for this client. kl Outcome: 17:54 Discharge ordered by MD. kb 19:23 Discharged to home ambulatory, 19:23 Condition: stable 19:23 Discharge instructions given to patient, Instructed on discharge instructions, follow up and referral plans. Demonstrated understanding of instructions, follow-up care, 19:25 Patient left the ED. kl Signatures: Dispatcher [employer] EDMS Shilpa Hilario FNP-C FNP-Ckb Lewis, Kimberly, RN Racquel Aquino RN RN Demi Neal mg5
== END 2023-05-24 19:25 | disposition home or self-care (01) ==
LOC: ER 16:40
DX: S62.396A Other fracture of fifth metacarpal bone, right hand, initial encounter for closed fracture (principal)

== ENCOUNTER → 2023-09-14 | Emergency (ER) | payer SELFPAY ==
[~2023-09-14] MED LIST: KETOROLAC 30 MG/ML INJ ONE
--- OUTSIDE RECORDS SUMMARY | 2023-09-14 09:32 | XMS REPORT | Continuity of Care Document ---
Author Name Unknown Address [address] [facility]. [address] [place] [address] [facility] Address [address] [facility] [address] [place] [address] Care Team Providers Care Range Management Specialist Name Role Phone PCP, PATIENT DOES NOT HAVE A Primary Care Physic caroline Unavailable LESA GARAY Attending Clinician Unavailable Lesa Garay DO Attending Clinician [phone] ARLINE LOCKWOOD Attending Clinician Unavailable Arline Gómez Attending Clinician [phone] JAYLIN THOMSON Attending Clinician Unavailable Jaylin Snowden Attending Clinician [phone] ROSEY MELGAR Attending Clinician Unavailable Janneth Ortiz Attending Clinician [phone] JANNETH CUNNINGHAM Attending Clinician Unavailable Doctor Unassigned, Alger Attending Clinician ALEN Sanchez Attending Clinician UnavailAlen Blair MD Attending Clinician [phone] AVERY ABURTO Attending Clinician Unavailable ADALGISA DICKINSON Attending Clinician Unavailab Adalgisa Parrish DO Attending Clinician [phone] JAYLIN THOMSON Admitting Clinician Unavailable Payers Payer Name Policy Type Policy Number Effective Date Expirati on Date Source [facility] [id number] 4570-03-01 00:00:00 Problems Condition Name Condition Details Condition Category Status Onset Date Resolution Date Last Treatment Date Treating Clinician Comments Source No known active problems No known active problems Disease [facility] Allergies, Adverse Reactions, Alerts Allergy Name Allergy Type Status Severity Reaction(s) Onset Date Inactive Date Treating Clinician Comments Source NO KNOWN ALLERGIE S Drug Class Active [facility] Social History Social Habit Start Date Stop Date Quantity Comments Source Gender identity [facility] Sexual orientation U [facility] Alcohol intake 2023-03-30 00:00:00 2023-03-30 00:00:00 Lifetime non-drinker (finding) [facility] Exposure to SARS-CoV-2 (event) 2022-10-19 00:00:00 2022-10-29 10:11:00 Not sure [facility] History of Social function 2022-10-02 00:00:00 2022-10-02 00:00:00 [facility] Tobacco use and exposure 2022-10-02 00:00:00 2022-10-02 00:00:00 Smokeless tobacco non-user [facility] Sex Assigned At 1990 00:00:00 1990 00:00:00 [facility] Smoking Status Start Date Stop Date Source Tobacco smoking consumption unknown [facility] Never smoked tobacco [facility] Medications Ordered Medication Name Filled Medication Name Start Date Stop Date Current Medication? Ordering Clinician Indication Dosage Frequency Signature (SIG) Comments Components Source naproxen (NAPROSYN) tablet 500 mg 2022-08 22:15: 00 07-06 21:17 :00 No 500mg 500 mg, Oral, ONCE, 1 dose, On Wed07/06/23 at 1615, Routine [facility] dexamethaso ne sod phos PF injection 10 mg 2022-08 21:15: 00 07-06 21:16 :00 No 10mg 10 mg, Oral, ONCE, 1 dose, On Wed07/06/23 at 1515, 1 mL [facility] benzonatate 100 mg capsule 2022-08 00:00: 00 Yes [id number] 100mg Take 1 capsule by mouth 3 (three) times daily as needed for Cough. [facility] methylPREDN ISolone (MEDROL, DEVIN,) 4 mg tablets 2022-08 00:00: 00 Yes [id number] Take by mouth SEE-INSTRU CTIONS. follow package directions [facility] rabies immune globulin (PF) (HYPERRAB (PF)) injection 2,085 Units 03-17 03:36: 00 03-17 04:13 :00 No 20U/kg 2,085 Units (rounded from 2,086 Units = 20 Units/kg ?104.3 kg), Intramuscu lar, ONCE, 1 dose, On Wed03/16/23 at 2245, DEBBY [facility] amoxicillin -clavulanat e 875-125 mg per tablet 03-16 00:00: 00 03-27 04:59 :00 No [id number] 1{tbl} Take 1 tablet by mouth in the morning and 1 tablet in the evening. Do all this for 10 days. [facility] amoxicillin -clavulanat e 875-125 mg per tablet 03-16 00:00: 00 03-27 04:59 :00 No [id number] 1{tbl} Take 1 tablet by mouth in the morning and 1 tablet in the evening. Do all this for 10 days. [facility] amoxicillin -clavulanat e 875-125 mg per tablet 03-16 00:00: 00 03-27 04:59 :00 No [id number] 1{tbl} Take 1 tablet by mouth in the morning and 1 tablet in the evening. Do all this for 10 days. [facility] amoxicillin 875 mg tablet 2021-08 00:00: 00 06-09 05:59 :00 No [id number] 875mg Take 1 tablet by mouth in the morning and 1 tablet in the evening. Do all this for 7 days. [facility] cephALEXin (KEFLEX) 500 mg capsule 02-07 00:00: 00 02-15 04:59 :00 No [id number] 500mg Take 1 capsule by mouth 4 (four) times daily for 7 days. [facility] Immunizations Ordered Immunization Name Filled Immunization Name Date Status Comments Source Human Rabies Vaccine From Chicken Fibroblast Culture (RABAVERT) 2023-03-30 00:00:00 Completed [facility] Human Rabies Vaccine From Chicken Fibroblast Culture (RABAVERT) 2023-03-23 00:00:00 Completed [facility] Human Rabies Vaccine From Chicken Fibroblast Culture (RABAVERT) 2023-03-23 00:00:00 Completed [facility] Human Rabies Vaccine From Chicken Fibroblast Culture (RABAVERT) 2023-03-19 00:00:00 Completed [facility] Human Rabies Vaccine From Chicken Fibroblast Culture (RABAVERT) 2023-03-19 00:00:00 Completed [facility] Human Rabies Vaccine From Chicken Fibroblast Culture (RABAVERT) 2023-03-19 00:00:00 Completed [facility] TD Pres-Free 2023-03-17 00:00:00 Completed [facility] TD Pres-Free 2023-03-17 00:00:00 Completed [facility] TD Pres-Free 2023-03-17 00:00:00 Completed [facility] TD Pres-Free 2023-03-17 00:00:00 Completed [facility] Human Rabies Vaccine From Chicken Fibroblast Culture (RABAVERT) 2023-03-16 00:00:00 Completed [facility] Human Rabies Vaccine From Chicken Fibroblast Culture (RABAVERT) 2023-03-16 00:00:00 Completed [facility] Human Rabies Vaccine From Chicken Fibroblast Culture (RABAVERT) 2023-03-16 00:00:00 Completed [facility] Human Rabies Vaccine From Chicken Fibroblast Culture (RABAVERT) 2023-03-16 00:00:00 Completed [facility] TD, NOS 2022-02-07 00:00:00 Completed [facility] TD, NOS 2022-02-07 00:00:00 Completed [facility] Td 2022-02-07 00:00:00 Completed [facility] TD, NOS 2022-02-07 00:00:00 Completed [facility] TD, NOS 2022-02-07 00:00:00 Completed [facility] Td 2022-02-07 00:00:00 Completed [facility] TD, NOS 2022-02-07 00:00:00 Completed [facility] TD, NOS 2022-02-07 00:00:00 Completed [facility] TD, NOS 2022-02-07 00:00:00 Completed [facility] TD, NOS 2022-02-07 00:00:00 Completed [facility] TD, NOS 2022-02-07 00:00:00 Completed [facility] TD, NOS 2022-02-07 00:00:00 Completed [facility] TD, NOS Unknown Completed [facility] Human Rabies Vaccine From Chicken Fibroblast Culture (RABAVERT) Unknown Completed [facility] TD Pres-Free Unknown Completed [facility] Human Rabies Vaccine From Chicken Fibroblast Culture (RABAVERT) Unknown Completed [facility] Human Rabies Vaccine From Chicken Fibroblast Culture (RABAVERT) Unknown Completed [facility] Human Rabies Vaccine From Chicken Fibroblast Culture (RABAVERT) Unknown Completed [facility] Vital Signs Vital Name Observation Time Observation Value Comments S ource Body temperature 2023-07-06 21:03:00 36.5 Cassie [facility] Systolic blood pressure 2023-07-06 21:02:00 149 mm[Hg] [facility] Diastolic blood pressure 2023-07-06 21:02:00 105 mm[Hg] [facility] Heart rate 2023-07-06 21:02:00 90 /min [facility] Respiratory rate 2023-07-06 21:02:00 16 /min [facility] Oxygen saturation in Arterial blood by Pulse oximetry 2023-07-06 21:02:00 97 /min [facility] Systolic blood pressure 2023-03-30 22:30:00 127 mm[Hg] [facility] Diastolic blood pressure 2023-03-30 22:30:00 77 mm[Hg] [facility] Heart rate 2023-03-30 22:30:00 100 /min [facility] Body temperature 2023-03-30 22:30:00 37.22 Cassie [facility] Respiratory rate 2023-03-30 22:30:00 20 /min [facility] Body weight 2023-03-30 22:30:00 104.327 kg [facility] BMI 2023-03-30 22:30:00 40.74 kg/m2 [facility] Oxygen saturation in Arterial blood by Pulse oximetry 2023-03-30 22:30:00 98 /min [facility] Systolic blood pressure 2023-03-23 21:49:00 141 mm[Hg] [facility] Diastolic blood pressure 2023-03-23 21:49:00 98 mm[Hg] [facility] Heart rate 2023-03-23 21:49:00 97 /min [facility] Body temperature 2023-03-23 21:49:00 37.11 Cassie [facility] Respiratory rate 2023-03-23 21:49:00 20 /min [facility] Body weight 2023-03-23 21:49:00 104.327 kg [facility] BMI 2023-03-23 21:49:00 40.74 kg/m2 [facility] Oxygen saturation in Arterial blood by Pulse oximetry 2023-03-23 21:49:00 99 /min [facility] Body temperature 2023-03-19 21:45:00 36.89 Cassie [facility] Systolic blood pressure 2023-03-19 21:44:00 132 mm[Hg] [facility] Diastolic blood pressure 2023-03-19 21:44:00 87 mm[Hg] [facility] Heart rate 2023-03-19 21:44:00 98 /min [facility] Respiratory rate 2023-03-19 21:44:00 16 /min [facility] Body height 2023-03-19 21:44:00 160 cm [facility] Body weight 2023-03-19 21:44:00 104.327 kg [facility] BMI 2023-03-19 21:44:00 40.74 kg/m2 [facility] Oxygen saturation in Arterial blood by Pulse oximetry 2023-03-19 21:44:00 99 /min [facility] Systolic blood pressure 2023-03-17 05:00:00 131 mm[Hg] [facility] Diastolic blood pressure 2023-03-17 05:00:00 56 mm[Hg] [facility] Heart rate 2023-03-17 05:00:00 84 /min [facility] Body temperature 2023-03-17 05:00:00 37.5 Cassie [facility] Respiratory rate 2023-03-17 05:00:00 16 /min [facility] Oxygen saturation in Arterial blood by Pulse oximetry 2023-03-17 05:00:00 98 /min [facility] Body height 2023-03-17 02:05:00 160 cm [facility] Body weight 2023-03-17 02:05:00 104.327 kg [facility] BMI 2023-03-17 02:05:00 40.74 kg/m2 [facility] Systolic blood pressure 2022-10-29 15:23:00 122 mm[Hg] [facility] Diastolic blood pressure 2022-10-29 15:23:00 85 mm[Hg] [facility] Heart rate 2022-10-29 15:23:00 93 /min [facility] Body height 2022-10-29 15:23:00 160 cm [facility] Body weight 2022-10-29 15:23:00 104.327 kg [facility] BMI 2022-10-29 15:23:00 40.74 kg/m2 [facility] Oxygen saturation in Arterial blood by Pulse oximetry 2022-10-29 15:23:00 98 /min [facility] Body height 2022-10-02 14:39:00 160 cm [facility] Body weight 2022-10-02 14:39:00 104.327 kg [facility] BMI 2022-10-02 14:39:00 40.74 kg/m2 [facility] Systolic blood pressure 2022-06-01 16:07:00 153 mm[Hg] [facility] Diastolic blood pressure 2022-06-01 16:07:00 99 mm[Hg] [facility] Heart rate 2022-06-01 16:07:00 100 /min [facility] Body temperature 2022-06-01 16:07:00 37.17 Cassie [facility] Respiratory rate 2022-06-01 16:07:00 20 /min [facility] Body height 2022-06-01 16:07:00 160 cm [facility] Body weight 2022-06-01 16:07:00 77.111 kg [facility] BMI 2022-06-01 16:07:00 30.11 kg/m2 [facility] Oxygen saturation in Arterial blood by Pulse oximetry 2022-06-01 16:07:00 99 /min [facility] Systolic blood pressure 2022-02-07 13:11:00 142 mm[Hg] [facility] Diastolic blood pressure 2022-02-07 13:11:00 105 mm[Hg] [facility] Heart rate 2022-02-07 13:11:00 88 /min [facility] Body temperature 2022-02-07 13:11:00 36.89 Cassie [facility] Respiratory rate 2022-02-07 13:11:00 16 /min [facility] Body height 2022-02-07 13:11:00 160 cm [facility] Body weight 2022-02-07 13:11:00 81.647 kg [facility] BMI 2022-02-07 13:11:00 31.89 kg/m2 [facility] Oxygen saturation in Arterial blood by Pulse oximetry 2022-02-07 13:11:00 97 /min [facility] Procedures Procedure Date / Time Performed Performing Clinicia n Source ASSIGNMENT OF BENEFITS 2023-07-06 21:37:02 Docto r Unassigned, Alger [facility] RAPID STREP SCREEN FOR GROUP A 2023-07-06 21:11:00 Lesa Garay [facility] RAPID INFLUENZA A/B 2023-07-06 21:11:00 Rosalio Garay [facility] COVID-19 (ID NOW RAPID TESTING) 2023-07-06 21:11:00 Lesa Garay [facility] CONSENT/REFUSAL FOR DIAGNOSIS AND TREATMENT 2023-07-06 20:51:44 Doctor Unassigned, Alger [facility] CONSENT/REFUSAL FOR DIAGNOSIS AND TREATMENT 2023-03-30 22:25:52 Doctor Unassigned, Alger [facility] ASSIGNMENT OF BENEFITS 2023-03-23 21:51:35 Docto r Unassigned, Alger [facility] CONSENT/REFUSAL FOR DIAGNOSIS AND TREATMENT 2023-03-23 21:46:46 Doctor Unassigned, Alger [facility] CONSENT/REFUSAL FOR DIAGNOSIS AND TREATMENT 2023-03-19 21:40:42 Doctor Unassigned, Alger [facility] POCT TEST 2023-03-17 04:06:00 Arvind Cunningham [facility] CONSENT/REFUSAL FOR DIAGNOSIS AND TREATMENT 2023-03-17 02:01:46 Doctor Unassigned, Alger [facility] EXTERNAL PROVIDER RECORDS 2022-11-04 05:01:00 Doctor Unassigned, Alger [facility] ASSIGNMENT OF BENEFITS 2022-10-29 15:13:46 Docto r Unassigned, Alger [facility] CONSENT/REFUSAL FOR DIAGNOSIS AND TREATMENT 2022-06-01 16:03:10 Doctor Unassigned, Alger [facility] XR FOOT <3 VW RIGHT 2022-02-07 13:47:00 Cecy Thomson [facility] NOTICE OF PRIVACY PRACTICES 2022-02-07 12:53:26 Doctor Unassigned, Alger [facility] Encounters Start Date/Time End Date/Time Encounter Type Admission Type Attending [facility] Care Facility Care Department Encounter ID Source 2023-07-06 15:11:00 2023-07-06 16:57:00 Emergency X [facility] ERT [id number] [facility] 2023-07-06 15:11:00 2023-07-06 16:57:00 Emergency Lesa Garay [facility] 1.2.840.114 350.1.13.10 4.2.7.2.686 [id number] [facility] 2023-03-30 17:31:00 2023-03-30 18:19:00 Emergency X [facility] ERT [id number] [facility] 2023-03-30 17:31:00 2023-03-30 18:19:00 Emergency Arline Lockwood [facility] 1.2.840.114 350.1.13.10 4.2.7.2.686 [id number] [facility] 2023-03-23 16:49:00 2023-03-23 18:07:00 Emergency [facility] [id number] [facility] 2023-03-23 16:49:00 2023-03-23 18:07:00 Emergency Jaylin Thomson [facility] 1.2.840.114 350.1.13.10 4.2.7.2.686 [id number] [facility] 2023-03-19 16:46:00 2023-03-19 17:51:00 Emergency X [facility] ERT [id number] [facility] 2023-03-19 16:46:00 2023-03-19 17:51:00 Emergency Rosey Melgar [facility] 1.2.840.114 350.1.13.10 4.2.7.2.686 [id number] [facility] 2023-03-16 21:28:00 2023-03-17 00:35:00 Emergency Janneth Cunningham [facility] 1.2.840.114 350.1.13.10 4.2.7.2.686 [id number] [facility] 2023-03-16 21:28:00 2023-03-17 00:35:00 [facility] [id number] 2022-11-04 00:00:00 2022-11-04 00:00:00 Orders Only Doctor Unassigned, Alger [facility] 1.2.84114 350.1.13.10 4.2.7.2.686 [id number] [facility] 2022-10-29 11:00:00 2022-10-29 11:02:03 Outpatient R ALEN LYMAN [facility] [id number] [facility] 2022-10-29 11:00:00 2022-10-29 11:02:03 Office Visit Alen Lyman [facility] 1.84.114 350.1.13.10 4.2.7.2.686 [id number] [facility] 2022-10-29 00:00:00 2022-10-29 00:00:00 Orders Only Doctor Unassigned, Alger [facility] 1.840.114 350.1.13.10 4.2.7.2.686 [id number] [facility] 2022-10-02 08:45:00 2022-10-02 11:19:37 Outpatient R ALEN LYMAN [facility] [id number] [facility] 2022-10-02 08:45:00 2022-10-02 11:19:37 Office Visit Alen Lyman [facility] 1.840.114 350.1.13.10 4.2.7.2.686 [id number] [facility] 2022-06-01 11:09:00 2022-06-01 11:39:00 Emergency X [facility] ERT [id number] [facility] 2022-06-01 11:09:00 2022-06-01 11:39:00 Emergency Adalgisa Dickinson [facility] 1.84.114 350.1.13.10 4.2.7.2.686 [id number] [facility] 2022-02-07 08:14:00 2022-02-07 10:26:00 Emergency X [facility]LIN [facility] ERT [id number] [facility] 2022-02-07 08:14:00 2022-02-07 10:26:00 Emergency Jaylin Thomson [facility] 1.2.840.114 350.1.13.10 4.2.7.2.686 [id number] [facility] Results Test Description Test Time Test Comments Results Result Co mments Source [facility] Notes Date/Time Note Provider Source 2023-03-30 18:18:46 Y7HNFrmiLyHQUDy/Pg/o RX+n5+dY8 CRMqCQeE9mxRKa+BiqPoOGh4jT19K QxI8T95131-29-50I76:18:46Form atting of this note might be different from the original.Patient given written and verbal dc instructions. Signed and verbalized understanding. Steady gait. 87938-0Kmdnguwqa department NmzuWH6968-42-79A43:18:58Emer gency department NoteTXT1.2.840.099482.1.13.10 4.2.7.2.566224|[id number] ailable for patient ktvz00120-2CylcGEZMHTSAAZ[address] PlpgPrqlcplfbPeztrwzrkASWP229 2884248DGPTKDNQSBINQIGZIXQACU 6147-60-95K06:18:581.2.840.11 4350.1.72.3.15|1.2.840.385204 .1.13.104.2.7.2.727879_188642 7213 [facility] 2023-03-30 17:29:35 Vw6gIge8osj2jq2Qo16A 6IUceZhDv E3MWu0y8lYGs+mvjPtf3tVO/hxMPr [facility]/7033-77-62O48:29:35Form atting of this note might be different from the original.Patient to ED for rabies vaccine. 10221-3Zrblfyjqb department Triage qpulUN9939-64-74W60:30:25Emer [facility] department Triage noteTXT1.2.840.783784.1.13.10 4.2.7.2.222106|[id number] ailable for patient okpu24516-9Xluotefrm[address] [id number] 4307-91-39U23:30:251.2.840.11 4350.1.72.3.15|1.2.840.254520 .1.13.104.2.7.2.727879_188641 [address] [place] [address] 2023-03-23 17:35:23 Y8xlx9u7Nb3WfpCbzNXa K7UVmFHcI A8M4i64kVrg6CNjVmc8K7euGPq8UN Zj+3406219-70-90S49:35:23Form atting of this note might be different from the original.Written/verbal d/c instructions, out of ER no distress 42520-2Icqqxvlze[address] [place] [address] NllaAC0603-51-04I38:35:39Emer [facility] department NoteTXT1.2.840.829395.1.13.10 4.2.7.2.819350|[id number] ailable for patient ymql73999-6QhzyWEVDDFFXWM97 [address] 2485008HQYMUGRUXFWOJCUTMHKUZA 9124-52-37N50:35:391.2.840.11 4350.1.72.3.15|1.2.840.356850 .1.13.104.2.7.2.727879_188064 7737 [facility] 2023-03-23 16:48:51 nFtW058n705vsyJStJBX oCEQbJoUi Tcg9c6WYHbBTlbmX/VvCoWE4oNGFQ /BaiiI5877-34-45U87:48:51Form atting of this note might be different from the original.Patient here for 3rd rabies shot. 03186-7Laezopjqf department Triage lqfjJS5291-27-13R43:49:03Emer [facility] department Triage noteTXT1.2.840.697593.1.13.10 4.2.7.2.608519|[id number] ailable for patient emwg49690-1Raxrytuss department FgaoEU376941987Xxbahxr D Wierzbicki RN[address]veston[place] [id number] 5599-79-04O07:49:031.2.840.11 4350.1.72.3.15|1.2.840.350326 .1.13.104.2.7.2.727879_188062 1679 Abdifatah Ryan RN [facility] 2023-03-19 17:50:27 dBwq9KGlCmkvwOkyUwI8 AkmgC9Wxm FPK2Qt7nVZJBFZKo+1ZTV/LX6JpYt AmlIhL8415-86-84R86:50:27Form atting of this note might be different from the original.Pt given discharge instructions on need for rabies vaccination. No prescriptions given. Pt left er ambulatory, no signs of distress. 13495-7Xbhnvfpqu department KdfiJY5049-45-86F61:51:34Emer [facility] department NoteTXT1.2.840.668050.1.13.10 4.2.7.2.168856|[id number] ailable for patient zvnv56835-6TeyvZNQQVYLQVS97 [address] [id number] 9287-43-85H89:51:341.2.840.11 4350.1.72.3.15|1.2.840.369628 .1.13.104.2.7.2.727879_187816 0334 [facility] 2023-03-19 16:44:02 iyRJxNpPw6Vzdqe7M8bv S604fRyox 1Ov9AF7AvYQM/lwkqwIxCjAJ+dCas qRdSit6942-47-96G80:44:02Form atting of this note might be different from the original.Pt to ed for second round of rabies vaccination. No complaints at this time. Vss. 26931-5Opfmduhxe department Triage lvddRF2297-94-25F20:44:18Emer [facility] department Triage noteTXT1.2.840.161679.1.13.10 4.2.7.2.707254|[id number] ailable for patient emyw25935-1Dinaguwaa department YjcbPD693605876Ciocpq A Paul RN[address] [id number] 4696-30-43T84:44:181.2.840.11 4350.1.72.3.15|1.2.840.857532 .1.13.104.2.7.2.727879_187814 1103 Shelby Howell RN [facility] 2023-03-17 00:06:58 6dbDxGGpmE7lMu3VxZMm sjjmIAR25 jqtkN06Hdo+9500jxDDRHoMu0YVNb Lcfgzr6269-04-60E83:06:58Form atting of this note might be different from the original.Pt given printed and verbal discharge instructions regarding cat scratch of left hand and need for exposure prophylaxis for rabies. Prescriptions providedDiscussed antibiotic therapy and to take until all completed unless adverse reaction occurs - if occurs, discontinue medication and follow up with pcp/seek medical attentionPt verbalized understanding of instructions, pt awake alert oriented, resp reg unlabored, skin w/d, color appropriate for race, moves all ext well,pt encouraged to follow up with pcp.Advised to seek medical attention for new/prolonged/worsening of symptomsNo adverse reaction to meds given in ER noted upon dischargeAwake, alert oriented, resp reg unlabored, skin w/d, pt leaving amb with steady gait, in no apparent distress [id number] department [id number]:09:39Emer gency department [id number] ailable for patient [id number] [id number] [id number] [id number]|[id number] .[id number] 5987 [facility] 2023-03-16 21:05:00 [id number] gawVZerWN bTzTyTVt6eVvwKSMjlomVMXoV9Lvj [id number]:05:00Form atting of this note might be different from the original.Patient states: "I'm concerned that our cat has rabies because it started acting crazy with foaming on its mouth since Wednesday and I got scratched by it on my right hand 3 days ago." [id number] department Triage bjcoDF6310-26-05E42:27:50Emer [facility] department Triage [id number] ailable for patient fmmb84041-3Dzvriybfy department [id number] C Heredia RNUT[address] WduiDdanrygseUmgxhifxvFEKS703 [id number] [id number] [id number]|[id number] .[id number] 7135 Maria Berg RN [facility]
--- NOTE | 2023-09-14 11:04 | RAD REPORT ---
EXAM DESCRIPTION: RAD - Foot Left 3 View - 09/14/2023 10:41 am CLINICAL HISTORY: PAIN COMPARISON: No comparisons FINDINGS: Small posterior calcaneal spur is seen. No fracture or dislocation is seen.
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
[2023-09-14 11:39] VITALS: BP 142/93; TEMP 98.5; O2SAT 100
== END ==
LOC: ER 09:29
DX: S91.202A Unspecified open wound of left great toe with damage to nail, initial encounter (principal)